=== PATIENT | male | born 1980 | race Caucasian/White ===

== ENCOUNTER 2025-03-18 10:30 | Emergency (ER) | payer MEDICAID ==
[~2025-03-18] VITALS: Ht 172.7 cm; Wt 86.2 kg
[2025-03-18 10:34] VITALS: BP 130/88
[2025-03-18] MEDS ORDERED: ACETAMINOPHEN 500 MG TABLET ONE (10:57)
[2025-03-18] MEDS ORDERED: ONDANSETRON ODT 4 MG TAB.RAPDIS ONE (10:58)
[2025-03-18] MEDS ORDERED: IBUPROFEN 400 MG TABLET ONE (10:58)
[2025-03-18] MEDS: ONDANSETRON ODT 4 MG TAB.RAPDIS SL ONE (11:02)
[2025-03-18] MEDS: ACETAMINOPHEN 500 MG TABLET PO ONE (11:02)
[2025-03-18] MEDS: IBUPROFEN 400 MG TABLET PO ONE (11:02)
[2025-03-18] MEDS ORDERED: CARI350T PO (11:31)
[2025-03-18] MEDS ORDERED: IBUP-1953 PO (11:31)
[2025-03-18] MEDS ORDERED: ONDA4TAB11 PO (11:51)
[2025-03-18 12:00] VITALS: BP 132/78; O2SAT 98
== END 2025-03-18 12:00 | disposition home or self-care (01) ==
LOC: ER 10:30
DX: S13.4XXA Sprain of ligaments of cervical spine, initial encounter (principal); I51.9 Heart disease, unspecified; V89.2XXA Person injured in unspecified motor-vehicle accident, traffic, initial encounter; Y93.89 Activity, other specified; Y92.410 Unspecified street and highway as the place of occurrence of the external cause; Y99.9 Unspecified external cause status
CPT/HCPCS: A4606; A4663; A9150; Q0162